=== PATIENT | male | born 1955 | race Caucasian/White ===

== ENCOUNTER 2018-06-24 10:50 | Emergency (ER) | payer OTHER ==
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
[2018-06-24 12:24] VITALS: BP 129/87
== END 2018-06-24 12:55 | disposition home or self-care (01) ==
DX: S06.0X0A Concussion without loss of consciousness, initial encounter (principal); S16.1XXA Strain of muscle, fascia and tendon at neck level, initial encounter; V49.49XA Driver injured in collision with other motor vehicles in traffic accident, initial encounter; Y92.415 Exit ramp or entrance ramp of street or highway as the place of occurrence of the external cause